=== PATIENT | female | born 1975 | race Caucasian/White ===

== ENCOUNTER → 2017-11-04 | Outpatient (CLI) | payer MEDICARE | LOC: MAMMO 13:13 | PROVIDERS: ATTEND Specialist | DX: Z12.31 Encounter for screening mammogram for malignant neoplasm of breast (principal) | CPT/HCPCS: 77067 ==

== ENCOUNTER 2019-10-20 18:16 | Inpatient (IN) | payer OTHER ==
[~2019-10-20] VITALS: Ht 167.6 cm; Wt 79.4 kg
[2019-10-20] MEDS ORDERED: ONDANSETRON HCL INJ 2MG/ML 2ML 2 MG/ML VIAL IV STA (18:22)
[2019-10-20] MEDS ORDERED: SODIUM CHLORIDE 0.9% 1000ML 1,000 ML IV STA (18:22)
[2019-10-20] MEDS ORDERED: MORPHINE SULFATE INJ 4 MG/ML INJ 1ML IV STA (18:22)
[2019-10-20] MEDS ORDERED: PANTOPRAZOLE 40 MG 10ML VIAL IV STA (18:22)
[2019-10-20] MEDS ORDERED: LIDOCAINE VISC 2% SOLN 15 ML UDC PO ONE (18:30)
[2019-10-20] MEDS ORDERED: MAGNESIUM/ALUMINUM/SIMETHICONE 30 ML UDC PO ONE (18:30)
[2019-10-20] MEDS ORDERED: ASPIRIN 81 MG CHEW TAB PO ONE (18:30)
[2019-10-20 18:34] LABS: BASOPHILS % 0.2 % (0.0-1.0); EOSINOPHILS % 0.3 % (0.0-6.0); HEMATOCRIT 40.3 % (34.2-44.1); HEMOGLOBIN 14.5 g/dL (12.0-16.0); LYMPHOCYTES # (AUTO) 1.5 (1.0-3.2); LYMPHOCYTES % 10.8 % (18.0-39.1); MEAN CORPUSCULAR HEMOGLOBIN 31.2 pg (28-32); MEAN CORPUSCULAR VOLUME 86.7 fL (81-99); MONOCYTES # (AUTO) 0.9 (0.2-0.8); MONOCYTES % 6.4 % (4.4-11.3); NEUTROPHILS # (AUTO) 11.5 (2.1-6.9); NEUTROPHILS % 81.9 % (38.7-80.0); PLATELET COUNT 325 x10e3/uL (140-360); RED BLOOD COUNT 4.65 x10e6/uL (3.6-5.1); RED CELL DISTRIBUTION WIDTH 12.7 % (11.7-14.4)
[2019-10-20 18:43] LABS: INR 0.91; PROTHROMBIN TIME 12.8 seconds (11.9-14.5)
[2019-10-20 18:44] LABS: PARTIAL THROMBOPLASTIN TIME 24.5 seconds (23.8-35.5)
[2019-10-20 18:52] LABS: ALANINE AMINOTRANSFERASE 1042 IU/L (0-55); ALBUMIN 3.7 g/dL (3.5-5.0); ALBUMIN/GLOBULIN RATIO 1.2 (0.8-2.0); ALKALINE PHOSPHATASE 78 IU/L (40-150); AMYLASE 3545 U/L (25-125); ANION GAP 12.7 mmol/L (8-16); BLOOD UREA NITROGEN 11 mg/dL (7-26); BUN/CREATININE RATIO 16 (6-25); CALCIUM 8.7 mg/dL (8.4-10.2); CARBON DIOXIDE 22 mmol/L (22-29); CHLORIDE 107 mmol/L (98-107); CREATINE KINASE 22 IU/L (29-168); CREATININE, SERUM 0.68 mg/dL (0.57-1.11); EST GLOMERULAR FILTRATION RATE > 60 ML/MIN (60-); GLUCOSE 151 mg/dL (74-118); POTASSIUM 3.7 mmol/L (3.5-5.1); SODIUM 138 mmol/L (136-145)
[2019-10-20] MEDS: BELLADONNA ALK/PHENOBARBITAL 5 ML UDC PO SCH (18:55)
[2019-10-20] MEDS ORDERED: PIPER-TAZ 3.375 GM 50 ML IV STA (19:12)
[2019-10-20 19:41] LABS: LIPASE 14122 U/L (8-78)
[2019-10-20] MEDS ORDERED: SODIUM CHLORIDE 0.9% 1000ML 1,000 ML IV ONE (20:00)
--- NOTE | 2019-10-20 20:17 | Diagnostic Imaging Report ---
EXAMINATION: CHEST SINGLE (PORTABLE) INDICATION: ^ERMD ORDER ^[id number] ^[birth year]26 ^Y. COMPARISON: FINDINGS: AP view TUBES and LINES: None. LUNGS/PLEURA: Lungs are well inflated. There is no evidence of pneumonia or pulmonary edema.. There is no pleural effusion or pneumothorax. HEART AND MEDIASTINUM: The cardiomediastinal silhouette is unremarkable. BONES AND SOFT TISSUES: No acute osseous lesion. Soft tissues are unremarkable. UPPER ABDOMEN: No free air under the diaphragm. IMPRESSION: No acute thoracic abnormality. Signed by: Simon Cohen MD on 10/20/2019 8:14 PM
--- NOTE | 2019-10-20 20:41 | Diagnostic Imaging Report ---
EXAM: CT Abdomen and Pelvis WITH contrast INDICATION: ruq pain COMPARISON: None. TECHNIQUE: Abdomen and pelvis were scanned utilizing a multidetector helical scanner from the lung base to the pubic symphysis after administration of IV contrast. Coronal and sagittal reformations were obtained. Dose modulation, iterative reconstruction, and/or weight based adjustment of the mA/kV was utilized to reduce the radiation dose to as low as reasonably achievable. Routine protocol was performed. Scan was performed when during portal venous phase. IV CONTRAST: 150 mL of Omnipaque 300 ORAL CONTRAST: Water COMPLICATIONS: None RADIATION DOSE: Total DLP: 495.8 mGy-cm Estimated effective dose: (DLP x 0.015 x size factor) mSv CTDIvol has been reviewed. It is below the limits set by the Radiation Protocol Committee (RPC). FINDINGS: LINES and TUBES: None. LOWER THORAX: There is bibasilar atelectasis. HEPATOBILIARY/GALLBLADDER: No focal hepatic lesions. There are stones in the gallbladder. No wall thickening. There is extrahepatic biliary ductal dilatation and minimal intrahepatic ductal dilatation. No definite choledocholithiasis. SPLEEN: No splenomegaly. PANCREAS: There is mild edema of the pancreas and infiltration adjacent to the pancreas pancreatitis. There is minimal free fluid adjacent pancreas with no definite pseudocyst formation. The pancreas parenchymal demonstrates adequate enhancement excluding necrosis. ADRENALS: No adrenal nodules KIDNEYS/URETERS: Kidneys enhance symmetrically. No hydronephrosis. Right renal cysts. No stones. GI TRACT: No abnormal distention, wall thickening, or evidence of bowel obstruction. Appendix is normal. PELVIC ORGANS/BLADDER: The bladder is unremarkable. There is a left adnexal cystic structure which could be physiologic for age. LYMPH NODES: No lymphadenopathy. VESSELS: Unremarkable. PERITONEUM / RETROPERITONEUM: No free air . BONES: Unremarkable. SOFT TISSUES: There is a fat containing para-umbilical hernia. IMPRESSION: Findings suggestive of mild pancreatitis. Cholelithiasis with no evidence of cholecystitis. Mild dilatation of common bile duct with no definite choledocholithiasis. Signed by: Simon Cohen MD on 10/20/2019 8:38 PM
[2019-10-20] MEDS: SODIUM CHLORIDE 0.9% 1000ML 1,000 ML IV SCH (21:15)
[2019-10-20] MEDS ORDERED: LEVETIRACETAM500 MG PO (21:16)
--- OUTSIDE RECORDS SUMMARY | 2019-10-20 21:17 | XMS REPORT ---
Author Author [facility] Address Unknown Phone Unavailable Care Team Providers Care Insurance Verification Rep Name Role Phone MIGUELINA Kieran DURGA Unavailable Unavailable CHIP COX Unavailable Unavailable Problems This patient has no known problems. Allergies, Adverse Reactions, Alerts This patient has no known allergies or adverse reactions. Medications This patient has no known medications. Results Test Description Test Time Test Comments Text Results Atomic Results Result Comments CT ABDOMEN/PELVIS W 2019-10-20 20:27:00 [facility] [address] [place] [address] Patient Name: LUCA TOLBERT MR #: [id number] : 1975 Age/Sex: 44/F Req #: [id number] Adm Physician: Ordered by: LUISA BERNARD [employer]IT[employer] MANAGER Report #: [id number] Location: ER Room/Bed: Procedure: [id number] CT/CT ABDOMEN/PELVIS W Exam Date: 10/20/19 Exam Time: 1929 REPORT STATUS: Signed EXAM: CT Abdomen and Pelvis WITH contrast INDICATIO N: ruq pain COMPARISON: None. TECHNIQUE: Abdomen and pelvis were scanned utilizing a multidetector helical scanner from the lung base to the pubic symphysis after administration of IV contrast. Coronal and sagittal reformations were obtained. Dose modulation, iterative reconstruction, and/or weight based adjustment of the mA/kV was utilized to reduce the radiation dose to as low as reasonably achievable. Routine protocol was performed. Scan was performed when during portal venous phase. IV CONTRAST: 150 mL of Omnipaque 300 ORAL CONTRAST: Water COMPLICATIONS: None RADIATION DOSE: Total DLP: 495.8 mGy-cm Estimated effective dose: (DLP x 0.015 x size factor) mSv CTDIvol has been reviewed. It is below the limits set by the Radiation Protocol Committee (RPC). FINDINGS: LINES and TUBES: None. LOWER THORAX: There is bibasilar atelectasis. HEPATOBILIARY/GALLBLADDER: No focal hepatic lesions. There are stones in the gallbladder. No wall thickening. There is extrahepatic biliary ductal dilatation and minimal intrahepatic ductal dilatation. No definite choledocholithiasis. SPLEEN: No splenomegaly. PANCREAS: There is mild edema of the pancreas and infiltration adjacent to the pancreas pancreatitis. There is minimal free fluid adjacent pancreas with no definite pseudocyst formation. The pancreas parenchymal demonstrates adequate enhancement excluding necrosis. ADRENALS: No adrenal nodules KIDNEYS/URETERS: Kidneys enhance symmetrically. No hydronephrosis. Right renal cysts. No stones. GI TRACT: No abnormal distention, wall thickening, or evidence of bowel obstruction. Appendix is normal. PELVIC ORGANS/BLADDER: The bladder is unremarkable. There is a left adnexal cystic structure which could be physiologic for age. LYMPH NODES: No lymphadenopathy. VESSELS: Unremarkable. PERITONEUM / RETROPERITONEUM: No free air . BONES: Unremarkable. SOFT TISSUES: There is a fat containing para-umbilical hernia. IMPRESSION: Findings suggestive of mild pancreatitis. Cholelithiasis with no evidence of cholecystitis. Mild dilatation of common bile duct with no definite choledocholithiasis. Signed by: Simon Garcia MD on 10/20/2019 8:38 PM Dictated By: SIMON GARCIA MD 37 Transcribed By: STACEY on 10/20/192037 COPY TO: LUISA BERNARD NP CHEST SINGLE (PORTABLE) 2019-10-20 20:13:00 [place] [address] Patient Name: LUCA TOLBERT MR #: [id number] : 1975 Age/Sex: 44/F Req #: [id number] Adm Physician: Ordered by: LUISA BERNARD [employer] T[employer]ITORY MANAGER Report #: [id number] Location: ER Room/Bed: Procedure: [id number] DX/CHEST SINGLE (PORTABLE) Exam Date: 10/20/19 Exam Time: 1926 REPORT STATUS: Signed EXAMINATION: CHEST SINGLE (PORTABLE) BALDEV CATION: ERMD ORDER [id number] 1928 Y. COMPARISON: FINDINGS: AP view TUBES and LINES: None. LUNGS/PLEURA: Lungs are well inflated. There is no evidence of pneumonia or pulmonary edema.. There is no pleural effusion or pneumothorax. HEART AND MEDIASTINUM: The cardiomediastinal silhouette is unremarkable. BONES AND SOFT TISSUES: No acute osseous lesion. Soft tissues are unremarkable. UPPER ABDOMEN: No free air under the diaphragm. IMPRESSION: No acute thoracic abnormality. Signed by: Simon Garcia MD on 10/20/2019 8:14 PM Dictated By: SIMON GARCIA MD 13 Transcribed By: STACEY on 10/20/192013 COPY TO: LUISA BERNARD [employer] TERRITORY MANAGER MAMMOGRAPHY DIGITAL [place] [address] Patient Name: LUCA TOLBERT MR #: [id number] : 1975 Age/Sex: 42/F Req #: [id number] Adm Physician: Ordered by: CHIP COX MD Report #: [id number] Location: MAMMO Room/Bed: Procedure: [id number] MG/MAMMOGRAPHY DIGITAL SCR BILAT Exam Date: 11/04/17 Exam Time: 1333 REPORT STATUS: Signed #[id number] - [id number] #BILATERAL DIGITAL SCREENING MAMMOGRAM WITH CAD: 11/04/2017 CLINICAL: Routine screening. No prior exams were available for comparison. Current study contains 4 films. The tissue of both breasts is extremely dense, which lowers the sensitivity of mammography. Current study was also evaluated with a Computer Aided Detection (CAD) system. There are benign calcifications in both breasts. There is a mole marker on both breasts. No significant masses, calcifications, or other findings are seen in either breast. IMPRESSION: BENIGN There is no mammographic evidence of malignancy. A 1 year screening mammogram is recommended. The patient will be notified by letter of the results. Cali heart/royce:11/18/2017 08:54:57 Pharmaceutical Botanist: Gayathri PINA(R)(M), [facility] letter sent: Normal Exam Mammogram BI-RADS: 2 Benign Dictated By: CALI GARCIA DO Transcribed By: ROYCE on 11/18/17853 COPY TO: CHIP COX MD
--- OUTSIDE RECORDS SUMMARY | 2019-10-20 21:17 | XMS REPORT ---
Author Author Admin, [place] Organization [facility] Address [address] [place] [address] Phone Allergies, Adverse Reactions, Alerts Allergy Name Reaction Description Start Date Severity Status Provider No Known Allergies Stephenie Ospina MA Conditions or Problems Problem Name Problem Code Onset Date Status Entry Date Provider Comment Standard Description Annotate Contact with or exposure to unspecified communicable disease V01.9 Active Lucy FABIAN Contact with or exposure to unspecified communicable disease History of brain tumor V10.85 Active Lucy FABIAN Personal history of malignant neoplasm of brain Seizure disorder 780.39 Active Lucy FABIAN Other convulsions Medication List Medication Instructions Start Date Stop Date Generic Name NDC Status Provider Patient Instruction CELEXA 20 MG ORAL TABLET 1 by mouth every day CITALOPRAM HYDROBROMIDE 09664344021 Active Lucy FABIAN Active LEVETIRACETAM 1000 MG ORAL TABLET TAKE 1 TABLET BY MOUTH TWICE A DAY LEVETIRACETAM 59849034186 Active Lucy FABIAN Active Vital Signs Date Name Value Unit Range Description blood pressure, diastolic 71 mm[Hg] BP shepherd blood pressure, systolic 101 mm[Hg] BP sys height E&M 66 [in_us] Bdy height pulse rate E&M 72 /min Heart rate temperature E&M 97.9 [degF] Body temperature weight E&M 192.25 [lb_av] Weight Measured Encounters Date Encounter Provider Code Facility 13:08:22 CDT New Patient Exp Problem - 74776 Lucy FABIAN CPT-79808 [facility] Adult Medicine
--- OUTSIDE RECORDS SUMMARY | 2019-10-20 21:17 | XMS REPORT ---
Author Author Admin, [place] Organization Unknown Address Unknown Phone Unavailable PROBLEMS Condition Status Date Provider Notes Acute maxillary sinusitis active Sana Monge History of brain tumor active Lucy Goff Seizure disorder active Lucy Goff Contact with or exposure to unspecified communicable disease active Lucy Goff ENCOUNTERS Date Type Provider Location Encounter Diagnosis - Ambulatory Encounter Sana L Monge Sana L Monge [facility] UNK - Ambulatory Encounter Sana L Monge Sana L Monge Silvia Alves [facility] Adult Medicine Acute maxillary sinusitis - Ambulatory Encounter Lucy Christopher [facility] Adult Medicine UNK - Ambulatory Encounter Armida Chavez [facility] Adult Medicine UNK - Ambulatory Encounter Lucy Goff [facility] Adult Medicine K - Ambulatory Encounter Lucy Ospina [facility] Adult Medicine Contact with or exposure to unspecified communicable diseaseSeizure disorderHistory of brain tumor VITAL SIGNS No Information Available Allergies No Known Allergy Information REASON FOR REFERRAL No Information Available RESULTS No Information Available HISTORY OF IMMUNIZATIONS No Information Available HISTORY OF MEDICATION USE Medication Instructions Dates Provider Comments AMOXICILLIN-POT CLAVULANATE 875-125 MG ORAL TABLET take 1 tablet twice daily for 1 week Sana Arroyo Monge CELEXA 20 MG ORAL TABLET 1 by mouth every day Lucy Goff LEVETIRACETAM 1000 MG ORAL TABLET TAKE 1 TABLET BY MOUTH TWICE A DAY Stephenie Brandrod #60, 30 days supply, Prescribed by CHIP COX, Rodo 10/28/2018 SOCIAL HISTORY Date Observation Value Provider social history reviewed E&M reviewed today Sana Monge " drug use, illicit Never Silvia Alves " alcohol use Currently Silvia Alves " sexual orientation Heterosexual Silvia Alves " is there any chance that you could be ? No Silvia Alves " passive cigarette smoke exposure No Silvia Alves " smoking status never smoker Silvia Long drug use, illicit Never Stephenie Anai " alcohol use, frequency holidays/special occasions only Stephenie [place] " alcohol use Currently Stephenie [place] " sex at Female Stephenie Anai " sexual orientation Heterosexual Stephenie [place] " passive cigarette smoke exposure No Stephenie [place] " smoking status never smoker Stephenie [place] " is there any chance that you could be ? No Stephenie Anai FUNCTIONAL STATUS No Information Available MENTAL STATUS Date Observation Value Provider Generalized Anxiety Disorder Questionnaire - Question 2 0 Silvia Alves " Generalized Anxiety Disorder Questionnaire - Question 1 0 Silvia Long Generalized Anxiety Disorder Questionnaire - Question 2 0 Stepheniebrenda Ospina " Generalized Anxiety Disorder Questionnaire - Question 1 0 Stephenie Anai MEDICAL EQUIPMENT No Information Available FAMILY HISTORY No Information Available INSURANCE PROVIDERS No Information Available ADVANCE DIRECTIVES No Information Available TREATMENT PLAN Date Name Hep B Surface Ab (Hep B Titer) Varicella Zoster Abs, IgG/IgM Measles/Mumps/Rubella Immunity (IgG) ([facility]) Est Patient Exp Problem - 62404 New Patient Exp Problem - 10055 HISTORY OF PROCEDURES No Information Available GOALS No Information Available HEALTH CONCERNS No Information Available
--- OUTSIDE RECORDS SUMMARY | 2019-10-20 21:17 | XMS REPORT ---
Author Author Admin, [place] Organization Unknown Address Unknown Phone Unavailable PROBLEMS Condition Status Date Provider Notes Acute maxillary sinusitis active Sana Monge History of brain tumor active Lucy Goff Seizure disorder active Lucy Goff Contact with or exposure to unspecified communicable disease active Lucy Goff ENCOUNTERS Date Type Provider Location Encounter Diagnosis - Ambulatory Encounter Sana L Monge Sana L Monge [facility] Adult Medicine UNK - Ambulatory Encounter Sana L Mogne Sana L Monge Silvia Alves [facility] [place] Adult Medicine Acute maxillary sinusitis - Ambulatory Encounter Lucy Christopher [facility] [place] Adult Medicine UNK - Ambulatory Encounter Armida Chavez [facility] [place] Adult Medicine UNK - Ambulatory Encounter Lucy Goff [facility] Adult Medicine K - Ambulatory Encounter Lucy Ospina [facility] Adult Medicine Contact with or exposure to [...] alcohol use, frequency holidays/special occasions only Stephenie [place] " alcohol use Currently Stephenie [place] " sex at Female Stephenie Anai " sexual orientation Heterosexual Stephenie Post " passive cigarette smoke exposure No Stephenie Post " smoking status never smoker Stephenie Post " is there any chance that you [...] (IgG) ([facility]) Est Patient Exp Problem - 62280 New Patient Exp Problem - 93361 HISTORY OF PROCEDURES No Information Available GOALS No Information Available HEALTH CONCERNS No Information Available
[2019-10-20] MEDS ORDERED: PHENTERMINE H37.5 M1 PO (21:21)
[2019-10-20] MEDS ORDERED: DESVENLAFAXINE50 MG PO (21:21)
[2019-10-20] MEDS ORDERED: LEVETIRACETAM 500 MG TAB PO SCH (21:30)
[2019-10-20] MEDS ORDERED: LEVETIRACETAM 500 MG TAB ONE ×2 (21:31→21:34)
--- NOTE | 2019-10-20 21:33 | Diagnostic Imaging Report ---
HISTORY: Pain, acute pancreatitis ^ABD PAIN ^Y TECHNIQUE: Selected images from limited abdominal ultrasound provided for INTERPRETATION: COMPARISON: CT abdomen/pelvis 1940 hours. FINDINGS: Pancreas: Visualized structures are increased in echotexture suggestive of lipomatosis. No mass or ductal dilatation. Liver: Measures 15.6 cm in sagittal plane. The echotexture is increased. No mass in the visualized portions. Portal Vein: Measures 0.9 cm. Proper directional flow on spectral Doppler interrogation. Intrahepatic bile ducts: No dilatation. Gallbladder: Present and filled with calcified gallstones. The gallbladder wall measures 2 mm. No pericholecystic fluid. CBD: 0.5 cm. Right Kidney: 10.7 cm in greatest length. The echotexture is normal. There is a unilocular cyst in the interpolar region measuring 14 x 17 x 18 mm. There is no collecting system dilatation or evidence of obstruction. No renal calculi evident. No adjacent free fluid or fluid collections. Visualized IVC and aorta are normal. There is no free fluid. IMPRESSION: 1. Cholelithiasis. No sonographic evidence of acute cholecystitis. No bile duct dilatation. 2. Steatosis. 3. Cyst in the right kidney as described above. Signed by: Dr. Celio Serrano MD on 10/20/2019 9:30 PM
[2019-10-20] MEDS ORDERED: LEVETIRACETAM 500 MG TAB PO ONE (21:45)
[2019-10-20] MEDS: PIPER-TAZ 3.375 GM / NS 50ML IV SCH (22:00)
[2019-10-20 22:53] VITALS: BP 118/69
--- NOTE | 2019-10-20 23:29 | NUR ---
SPOKE TO DR. aTqueria ARAIZA AT THIS TIME. SAID OK TO GIVE PO MEDS WITH SIPS OF WATER
[2019-10-20] MEDS: ONDANSETRON HCL INJ 2MG/ML 2ML 2 MG/ML VIAL IV PRN (23:38)
[2019-10-20] MEDS: HYDROMORPHONE 1MG/1ML INJ IV PRN (23:38)
[2019-10-21] VITALS (8 sets, daily range): BP systolic 98–110; BP diastolic 63–80
[2019-10-21] MEDS: SODIUM CHLORIDE 0.9% 1000ML 1,000 ML IV SCH ×5 (03:35→22:08)
[2019-10-21] MEDS: HYDROMORPHONE 1MG/1ML INJ IV PRN ×5 (03:40→21:05)
[2019-10-21] MEDS: PIPER-TAZ 3.375 GM / NS 50ML IV SCH ×3 (05:05→22:00)
[2019-10-21 05:07] LABS: BASOPHILS % 0.1 % (0.0-1.0); EOSINOPHILS % 0.3 % (0.0-6.0); HEMATOCRIT 35.5 % (34.2-44.1); HEMOGLOBIN 12.3 g/dL (12.0-16.0); LYMPHOCYTES # (AUTO) 1.1 (1.0-3.2); LYMPHOCYTES % 13.7 % (18.0-39.1); MEAN CORPUSCULAR HEMOGLOBIN 31.1 pg (28-32); MEAN CORPUSCULAR HGB CONC 34.6 g/dL (31-35); MEAN CORPUSCULAR VOLUME 89.6 fL (81-99); MONOCYTES # (AUTO) 0.6 (0.2-0.8); MONOCYTES % 7.1 % (4.4-11.3); NEUTROPHILS # (AUTO) 6.2 (2.1-6.9); NEUTROPHILS % 78.5 % (38.7-80.0); PLATELET COUNT 261 x10e3/uL (140-360); RED BLOOD COUNT 3.96 x10e6/uL (3.6-5.1); RED CELL DISTRIBUTION WIDTH 12.9 % (11.7-14.4)
[2019-10-21 05:44] LABS: ALANINE AMINOTRANSFERASE 859 IU/L (0-55); ALBUMIN 2.9 g/dL (3.5-5.0); ALBUMIN/GLOBULIN RATIO 1.2 (0.8-2.0); ALKALINE PHOSPHATASE 70 IU/L (40-150); AMYLASE 1270 U/L (25-125); BLOOD UREA NITROGEN 7 mg/dL (7-26); BUN/CREATININE RATIO 12 (6-25); CALCIUM 7.9 mg/dL (8.4-10.2); CARBON DIOXIDE 25 mmol/L (22-29); CHLORIDE 112 mmol/L (98-107); EST GLOMERULAR FILTRATION RATE > 60 ML/MIN (60-); GLUCOSE 102 mg/dL (74-118); SODIUM 141 mmol/L (136-145)
[2019-10-21 06:12] LABS: LIPASE 1871 U/L (8-78)
[2019-10-21] MEDS ORDERED: SODIUM CHLORIDE 0.9% 50ML 50 ML ONE (07:03)
[2019-10-21] MEDS ORDERED: IOPAMIDOL 370 MG/ML 200 ML INFUS..BTL INJ ONE (07:03)
--- NOTE | 2019-10-21 07:05 | NUR ---
RCD PT AT BED PT IS ALERT AND ORIENTED PT RESTING ON BED NO SIGNS OF ANY DISTRESS NOTED IV PATENT PT NPO BED LOW AND LOCKED CALL LIGHT IN REACH
--- NOTE | 2019-10-21 07:15 | NUR ---
PAGED DR DAMIAN TO NOTIFY THE CONSULTATION
[2019-10-21] MEDS: BELLADONNA ALK/PHENOBARBITAL 5 ML UDC PO SCH ×3 (08:05→22:08)
[2019-10-21] MEDS: ONDANSETRON HCL INJ 2MG/ML 2ML 2 MG/ML VIAL IV PRN (08:05)
[2019-10-21] MEDS: FAMOTIDINE 20 MG/2 ML VIAL IV SCH ×2 (08:46→16:56)
[2019-10-21] MEDS ORDERED: LEVETIRACETAM 500 MG TAB PO SCH (09:00)
--- NOTE | 2019-10-21 09:20 | History and Physical ---
PRIMARY CARE PHYSICIAN: Dilan Adams MD CHIEF COMPLAINT: Severe abdominal pain associated with gallstone and pancreatitis. HISTORY OF PRESENT ILLNESS: The patient is a 44-year-old female with history of seizure due to multiple craniotomy, brain cancer resection, on Keppra, came into the hospital with increase in severe abdominal pain. In the emergency room, the patient had workup done show dilated common bile duct along with that she also has chololithiasis. The patient was having nausea and vomiting. Severity is quite significant, which brought the patient to the emergency room and now admitted for further evaluation and treatment. The patient is otherwise stable. PAST MEDICAL HISTORY: 1. Malignant brain cancer, status post resection x3. 2. Seizure, on antiepileptic medication Keppra. 3. Major depression. SOCIAL HISTORY: The patient does not smoke or use alcohol. No recreational drugs. ALLERGIES: NO KNOWN ALLERGIES. HOME MEDICATION: Keppra 1000 mg twice a day. REVIEW OF SYSTEMS: As mentioned above. Persistent abdominal pain. PHYSICAL EXAMINATION: VITAL SIGNS: Temperature is 98, blood pressure 98/66, pulse rate 71, and respirations 18. GENERAL: The patient is in pain, but not in any acute distress. HEENT: History of previous craniotomy. No acute cranial problem. NECK: Grossly supple. PULMONARY: Clear. CARDIOVASCULAR: Regular rate and rhythm. ABDOMEN: Tenderness with some guarding. EXTREMITIES: No cyanosis or edema. NEURO: No gross focal deficit. LABORATORY DATA: Sodium 141, potassium 4, chloride 112, bicarb 25, BUN , creatinine 0.6, glucose 102. WBC is 8, hemoglobin 12, hematocrit 36, and platelets 261. PT is 12.8, PTT 24.5, and INR 0.9. Liver enzymes; AST 1259, ALT 1042, lipase 14,122, amylase 3545. Total bilirubin is 4.0. IMAGING DATA: Including pancreatitis. Cholelithiasis. Dilated common bile duct. IMPRESSION: 1. Acute pancreatitis secondary to gallstones, most likely associated with common bile duct dilatation. 2. Cholelithiasis and choledocholithiasis. 3. History of seizure from previous craniotomy. PLAN: Change the Keppra from home medication to IV. Continue with Zosyn 3.375 g IV q.8. MRCP. Consultation with Dr. Thanh Humphries and Dr. Sam Knowles. The patient will continue with IV fluids aggressively. Repeat lab work. Pain control. Pepcid 20 mg twice a day IV. Rylie chen.r.n. Pain control with Dilaudid. MD ABENA Edwards/FRANCISCO /[id number] cc: Dilan Adams MD
--- NOTE | 2019-10-21 10:00 | NUR ---
AGAIN PAGED DR DAMIAN TO NOTIFY THE CONSULTATION
--- NOTE | 2019-10-21 10:30 | NUR ---
PAGED AND TALKED DR DAMIAN HE SAID HE COMING TO SEE THE PT WITH IN AN HOUR
[2019-10-21 10:48] LABS: COLOR,URINE YELLOW (YELLOW)
[2019-10-21 10:49] LABS: BILIRUBIN,URINE SMALL (NEGATIVE); CLARITY,URINE CLEAR (CLEAR); KETONES,URINE NEGATIVE (NEGATIVE); LEUKOCYTE ESTERASE ,URINE NEGATIVE (NEGATIVE); NITRITE,URINE NEGATIVE (NEGATIVE); PROTEIN,URINE DIPSTICK NEGATIVE (NEGATIVE); URINE UROBILINOGEN 0.2 mg/dL (0.2 - 1)
[2019-10-21 10:58] LABS: BACTERIA,URINE FEW /HPF; EPITHELIAL CELLS,URINE FEW /LPF; RBC,URINE 0-5 /HPF (0-5); WBC,URINE (MAN) 0-5 /HPF (0-5)
--- NOTE | 2019-10-21 11:24 | Diagnostic Imaging Report ---
EXAM: MRI MRCP WO DATE: 10/21/2019 8:00 AM INDICATION: Evaluate for choledocholithiasis. COMPARISON: CT abdomen and pelvis dated 10/20/2019. TECHNIQUE: MRCP protocol performed. Sequences obtained include axial T2 FRFSE FS, coronal and axial T2 SSFSE, SSFSE coronal spins. FINDINGS: LOWER THORAX: There is bibasilar atelectasis. HEPATOBILIARY/GALLBLADDER: The liver is normal in size and signal intensity. No focal hepatic lesions. Again seen are multiple stones in the gallbladder. No wall thickening.There is extrahepatic biliary ductal dilatation and minimal intrahepatic ductal dilatation. There is no choledocholithiasis. SPLEEN: No splenomegaly. PANCREAS: Again seen is is mild edema of the pancreas and infiltration adjacent to the pancreas suggestive of mild degree of pancreatitis. There is minimal free fluid adjacent pancreas with no definite pseudocyst formation. . ADRENALS: No adrenal nodules KIDNEYS/URETERS: Kidneys enhance symmetrically. No hydronephrosis. Right renal upper pole simple cortical cyst measures 1.2 cm. No stones. GI TRACT: No abnormal distention, wall thickening, or evidence of bowel obstruction LYMPH NODES: No lymphadenopathy. VESSELS: Unremarkable. BONES: Unremarkable. SOFT TISSUES: There is a fat containing para-umbilical hernia. IMPRESSION: Mild pancreatitis. Cholelithiasis with no choledocholithiasis or cholecystitis. Signed by: Simon Cohen MD on 10/21/2019 11:20 AM
--- NOTE | 2019-10-21 11:55 | NUR ---
DR DAMIAN CAME TO SEE THE PT AND TALKED HER
[2019-10-21] MEDS ORDERED: ACETAMINOPHEN 325 MG TAB PO PRN (12:30)
--- NOTE | 2019-10-21 12:35 | Consultation ---
DATE OF CONSULTATION: 10/21/2019 CHIEF COMPLAINT: Abdominal pain. HISTORY OF PRESENT ILLNESS: The patient is a 44-year-old female with one-day history of pain in epigastric region with nausea and vomiting. No prior similar episodes. No fevers or diarrhea. PAST MEDICAL HISTORY: Positive for brain cancer, seizure disorder, and major depression. PAST SURGICAL HISTORY: Positive for craniotomy. ALLERGIES: SHE HAS NO DRUG ALLERGIES. SOCIAL HISTORY: Denies smoking or alcohol abuse. REVIEW OF SYSTEMS: No chest pain or shortness of breath. PHYSICAL EXAMINATION: VITAL SIGNS: Stable. Afebrile. GENERAL: She is awake, alert, in mild discomfort. HEENT: Sclerae are nonicteric. NECK: Supple. LUNGS: Clear. HEART: Regular rate and rhythm. ABDOMEN: Soft with some guarding tenderness epigastrium. No rebound. EXTREMITIES: No cyanosis or edema. LABORATORY DATA: The patient's white cell count is 14 and hemoglobin of 14. Creatinine is 0.6. Liver function tests, elevated bilirubin of 4, alkaline phosphatase 78, and ALT 1042. Lipase 14,000. Amylase 3500. Ultrasound gallbladder showed gallstones. MRCP showed mild pancreatitis, but no bile duct stone. ASSESSMENT: Gallstone pancreatitis. PLAN: N.p.o. until pancreatitis resolves, then proceed with cholecystectomy. Sam Knowles MD DNL/MODL /[id number]
[2019-10-21] MEDS: LEVETIRACETAM 500MG/5ML VIAL 1,000 MG in SODIUM CHLORIDE 0.9% 100 ML 100 ML IV SCH (18:00)
--- NOTE | 2019-10-21 18:40 | NUR ---
PT RESTING ON BED BED SIDE REPORT GIVEN TO ONCOMING NURSE
--- NOTE | 2019-10-21 19:09 | NUR ---
PT RESTING ON BED BED SIDE REPORT GIVEN TO ONCOMING NURSE
[2019-10-22] VITALS (8 sets, daily range): BP systolic 100–114; BP diastolic 66–70
[2019-10-22] MEDS: HYDROMORPHONE 1MG/1ML INJ IV PRN ×6 (00:07→22:37)
[2019-10-22] MEDS: SODIUM CHLORIDE 0.9% 1000ML 1,000 ML IV SCH ×5 (03:37→23:35)
[2019-10-22] MEDS: PIPER-TAZ 3.375 GM / NS 50ML IV SCH ×3 (05:06→21:18)
[2019-10-22 05:20] LABS: BASOPHILS % 0.3 % (0.0-1.0); EOSINOPHILS % 0.3 % (0.0-6.0); HEMOGLOBIN 11.5 g/dL (12.0-16.0); LYMPHOCYTES # (AUTO) 1.1 (1.0-3.2); LYMPHOCYTES % 9.2 % (18.0-39.1); MEAN CORPUSCULAR HEMOGLOBIN 30.7 pg (28-32); MEAN CORPUSCULAR HGB CONC 33.8 g/dL (31-35); MEAN CORPUSCULAR VOLUME 90.7 fL (81-99); MONOCYTES % 8.2 % (4.4-11.3); NEUTROPHILS # (AUTO) 9.5 (2.1-6.9); NEUTROPHILS % 81.6 % (38.7-80.0); PLATELET COUNT 211 x10e3/uL (140-360); RED BLOOD COUNT 3.75 x10e6/uL (3.6-5.1); RED CELL DISTRIBUTION WIDTH 12.9 % (11.7-14.4)
[2019-10-22 05:54] LABS: ALANINE AMINOTRANSFERASE 476 IU/L (0-55); ALBUMIN 2.7 g/dL (3.5-5.0); ALBUMIN/GLOBULIN RATIO 1.1 (0.8-2.0); ALKALINE PHOSPHATASE 69 IU/L (40-150); ANION GAP 9.4 mmol/L (8-16); BLOOD UREA NITROGEN < 5 mg/dL (7-26); CARBON DIOXIDE 25 mmol/L (22-29); CHLORIDE 109 mmol/L (98-107); CHOL/HDL RATIO 4.8 (3.0-3.6); CHOLESTEROL 125 MD/DL (0-199); EST GLOMERULAR FILTRATION RATE > 60 ML/MIN (60-); GLUCOSE 86 mg/dL (74-118); HDL CHOLESTEROL 26 MG/DL (40-60); LDL CHOLESTEROL 85 MG/DL (60-130); LIPASE 533 U/L (8-78); POTASSIUM 4.4 mmol/L (3.5-5.1); SODIUM 139 mmol/L (136-145); TRIGLYCERIDES 69 MG/DL (0-149)
[2019-10-22 05:55] LABS: BUN/CREATININE RATIO 8 (6-25)
[2019-10-22 06:00] LABS: THYROID STIMULATING HORMONE 0.937 uIU/mL (0.350-4.940)
[2019-10-22] MEDS: LEVETIRACETAM 500MG/5ML VIAL 1,000 MG in SODIUM CHLORIDE 0.9% 100 ML 100 ML IV SCH ×2 (06:00→17:41)
--- NOTE | 2019-10-22 07:10 | NUR ---
RCD PT AT BED PT IS ALERT AND ORIENTED PT RESTING ON BED NO SIGNS OF ANY DISTRESS NOTED IV PATENT PT CAN HAVE SOME WATER TO DRINK BED LOW AND LOCKED CALL LIGHT IN REACH
--- NOTE | 2019-10-22 07:10 | NUR ---
DR DAMIAN ASKED ABOUT THE PATIENTS CONDITION AND LABS ,HE SAID HE IS NOT DOING THE SURGERY ON TODAY HE WAITING FOR THE LABS ON TOMORROW NOTIFIED THE FAMILY
[2019-10-22] MEDS: BELLADONNA ALK/PHENOBARBITAL 5 ML UDC PO SCH ×3 (09:00→21:15)
[2019-10-22] MEDS: FAMOTIDINE 20 MG/2 ML VIAL IV SCH ×2 (09:00→17:00)
--- NOTE | 2019-10-22 13:54 | NUR ---
PT LIVES INDEPENDENTLY AT HOME WITH HER SHE IS A EMPLOYED A EQUIPMENT ASSOCIATE EMERGENCY CONTACT: : ANURAG TOLBERT PCP: CHIP ANDRES DC PLAN: RETURN HOME WITH HER
--- NOTE | 2019-10-22 18:38 | NUR ---
PT RESTING ON BED BED SIDE REPORT GIVEN TO ONCOMING NURSE
[2019-10-23] VITALS (8 sets, daily range): BP systolic 99–115; BP diastolic 66–68
[2019-10-23] MEDS: HYDROMORPHONE 1MG/1ML INJ IV PRN ×3 (03:45→20:43)
[2019-10-23] MEDS: SODIUM CHLORIDE 0.9% 1000ML 1,000 ML IV SCH ×5 (04:52→23:00)
[2019-10-23] MEDS: PIPER-TAZ 3.375 GM / NS 50ML IV SCH ×3 (05:10→20:33)
[2019-10-23 05:56] LABS: BASOPHILS % 0.3 % (0.0-1.0); EOSINOPHILS # (AUTO) 0.1 (0.0-0.4); EOSINOPHILS % 1.1 % (0.0-6.0); HEMATOCRIT 31.5 % (34.2-44.1); LYMPHOCYTES % 8.8 % (18.0-39.1); MEAN CORPUSCULAR HEMOGLOBIN 31.4 pg (28-32); MEAN CORPUSCULAR HGB CONC 34.9 g/dL (31-35); MONOCYTES # (AUTO) 0.9 (0.2-0.8); NEUTROPHILS % 81.3 % (38.7-80.0); PLATELET COUNT 206 x10e3/uL (140-360); RED CELL DISTRIBUTION WIDTH 12.7 % (11.7-14.4)
[2019-10-23] MEDS: LEVETIRACETAM 500MG/5ML VIAL 1,000 MG in SODIUM CHLORIDE 0.9% 100 ML 100 ML IV SCH ×2 (06:00→18:18)
[2019-10-23 06:17] LABS: ALANINE AMINOTRANSFERASE 276 IU/L (0-55); ALBUMIN 2.4 g/dL (3.5-5.0); ALBUMIN/GLOBULIN RATIO 0.9 (0.8-2.0); ALKALINE PHOSPHATASE 59 IU/L (40-150); ANION GAP 10.9 mmol/L (8-16); BLOOD UREA NITROGEN < 5 mg/dL (7-26); CARBON DIOXIDE 22 mmol/L (22-29); CHLORIDE 111 mmol/L (98-107); CREATININE, SERUM 0.56 mg/dL (0.57-1.11); EST GLOMERULAR FILTRATION RATE > 60 ML/MIN (60-); GLUCOSE 74 mg/dL (74-118); LIPASE 65 U/L (8-78); POTASSIUM 3.9 mmol/L (3.5-5.1); SODIUM 140 mmol/L (136-145)
[2019-10-23 06:40] LABS: BUN/CREATININE RATIO 9 (6-25)
--- NOTE | 2019-10-23 08:00 | NUR ---
Spoke with Dr. Knowles and reported lab results from this morning. Dr. Knowles states he will do lap stacey this morning. Received orders to have informed consent signed.
[2019-10-23] MEDS: BELLADONNA ALK/PHENOBARBITAL 5 ML UDC PO SCH ×3 (08:16→20:33)
[2019-10-23] MEDS: FAMOTIDINE 20 MG/2 ML VIAL IV SCH ×2 (08:16→18:19)
--- NOTE | 2019-10-23 09:30 | NUR ---
PT ASSESSED IN BED. AWAKE AND ALERT. NO COMPLAINTS OF PAIN. ABDOMEN SOFT TO PALPATION. NO NAUSEA. CONSENT FOR PROCEDURE OBTAINED. SEE CHART FOR DETAILS.
[2019-10-23] MEDS ORDERED: BUPIVACAINE 0.25% 30ML SDV INJ ONE (12:44)
[2019-10-23] MEDS ORDERED: LIDOCAINE 1% W/EPINEPHRINE 20 ML VIAL ONE (12:44)
--- NOTE | 2019-10-23 15:12 | NUR ---
Patient returned from PACU. Report received. Assisted to ambulate to bed. Tolerated well. No s/s of distress noted. Dressings to trochar sites to abdomen x 4 c/d/i/ Abdomen soft to palpation. No mccormack. See chart for details.
[2019-10-23] MEDS ORDERED: FENTANYL CITRATE/PF 100MCG/2 ML INJ ONE (15:59)
[2019-10-23] MEDS ORDERED: MIDAZOLAM HCL 2 MG/2 ML VIAL ONE (15:59)
--- NOTE | 2019-10-23 16:48 | Operative Report ---
DATE OF PROCEDURE: 10/23/2019 SURGEON: Sam Knowles MD PREOPERATIVE DIAGNOSIS: Gallstone pancreatitis. POSTOPERATIVE DIAGNOSIS: Gallstone pancreatitis. PROCEDURE: Laparoscopic cholecystectomy. ANESTHESIA: General. INDICATIONS: A 44-year-old female with history of abdominal pain and elevated lipase with gallstones seen. MRCP showed no bile duct stone. The patient consented for laparoscopic cholecystectomy after pancreatitis has improved. PROCEDURE FINDINGS: Chronic cholecystitis and cholelithiasis. DESCRIPTION OF PROCEDURE: The patient was brought to the OR and intubated. The abdomen was prepped and draped in sterile fashion. Infraumbilical incision was made and a 10 mm port inserted, insufflation begun under direct vision. Other ports I placed in the midepigastric and right upper quadrant. Gallbladder chronically inflamed and distended. Fundus retracted in cephalad direction. Next, the gallbladder retracted laterally. With blunt and sharp dissection, we isolated the cystic artery, triple clipped and divided. Cystic duct was also isolated. It was triple clipped and divided. The gallbladder detached from the liver with cautery and taken out through umbilical incisions, operative field irrigated. Hemostasis achieved. All ports removed under direct vision. Fascia closure with 0-Vicryl and skin was closed with subcuticular stitch. The patient was extubated and transported to the recovery room. BLOOD LOSS: 5 mL. Sam Knowles MD DNL/MODL /[id number]
[2019-10-23] MEDS ORDERED: ONDANSETRON HCL INJ 2MG/ML 2ML 2 MG/ML VIAL ONE (17:35)
[2019-10-23] MEDS ORDERED: PROPOFOL IV EMULSION 10 MG/ML 20 ML VIAL ONE (17:35)
[2019-10-23] MEDS ORDERED: SEVOFLURANE INHAL SOLN 250 ML PEN BTL ONE (17:35)
[2019-10-23] MEDS ORDERED: ROCURONIUM BROMIDE 10 MG/ML 5ML VIAL IV ONE (17:35)
[2019-10-23] MEDS ORDERED: NEOSTIGMINE 1 MG/ML 10ML VIAL ONE (17:35)
[2019-10-23] MEDS ORDERED: GLYCOPYRROLATE INJ 0.2 MG/ML VIAL ONE (17:35)
[2019-10-23] MEDS ORDERED: LIDOCAINE HCL 2% LOCAL INJ 5 ML SDV VIAL INJ ONE (17:35)
[2019-10-23] MEDS ORDERED: DEXAMETHASONE SOD PHOS INJ 4 MG/ML VIAL ONE (17:35)
--- NOTE | 2019-10-23 19:25 | NUR ---
Patient received sitting up in bed. AAO x 3. Patient had no complaints of pain. Respirations even and non-labored. IVF infusing at 200 cc/hr. Safety measures in place. Patient instructed to call for assistance when needed. Call light within reach.
[2019-10-24 00:36] VITALS: BP 102/68
[2019-10-24] MEDS: HYDROMORPHONE 1MG/1ML INJ IV PRN (00:50)
[2019-10-24 04:00] VITALS: BP 103/63
[2019-10-24] MEDS: SODIUM CHLORIDE 0.9% 1000ML 1,000 ML IV SCH (04:49)
[2019-10-24] MEDS: LEVETIRACETAM 500MG/5ML VIAL 1,000 MG in SODIUM CHLORIDE 0.9% 100 ML 100 ML IV SCH (05:31)
[2019-10-24] MEDS: PIPER-TAZ 3.375 GM / NS 50ML IV SCH (06:30)
--- NOTE | 2019-10-24 07:00 | NUR ---
Patient resting comfortably. Bed-side report given to oncoming nurse.
[2019-10-24 07:37] VITALS: BP 104/63
[2019-10-24] MEDS: BELLADONNA ALK/PHENOBARBITAL 5 ML UDC PO SCH (07:57)
[2019-10-24] MEDS: FAMOTIDINE 20 MG/2 ML VIAL IV SCH (07:57)
[2019-10-24 08:32] VITALS: BP 104/63
[2019-10-24] MEDS ORDERED: TYLENOL WITH C1 EACH PO (09:22)
[2019-10-24] MEDS ORDERED: FLAGYL250 MG PO (09:24)
[2019-10-24] MEDS ORDERED: ZOFRAN8 MG SL (09:24)
[2019-10-24] MEDS ORDERED: KEFLEX500 MG PO (09:25)
[2019-10-24] MEDS: ONDANSETRON HCL INJ 2MG/ML 2ML 2 MG/ML VIAL IV PRN (09:52)
--- NOTE | 2019-10-24 10:10 | NUR ---
Pt. preparing for d/c and expressed no spiritual or emotional concerns at this time. Pt identified as Rastafarian. Provided hospitality and information on how to reach network manager, if needed. [facility] [employer] Spiritual [facility] Department O: [phone]
--- NOTE | 2019-10-24 10:35 | NUR ---
PATIENT DISCHARGED HOME VIA PRIVATE CAR. VSS AT TIME OF DISCHARGE. DRESSINGS TO TROCHAR SITES TO ABDOMEN C/D/I/ ABDOMEN SOFT TO PALPATION. PATIENT TOLERATING REGULAR DIET. VOIDING WITHOUT DIFFICULTY. IV TO RIGHT AC DC'D WITH CATHETER INTACT. DRESSING APPLIED. HOME RX AND INSTRUCTIONS GIVEN. PT STATES UNDERSTANDING. SEE CHART FOR DETAILS.
--- NOTE | 2019-10-24 10:45 | Discharge Summary ---
PRIMARY CARE PHYSICIAN: Dr. Dilan Adams. CONSULTANTS: 1. Dr. Thanh Humphries. 2. Dr. Sam Knowles. FINAL DIAGNOSES: 1. Gallstone pancreatitis. 2. Cholelithiasis and cholecystitis. SUMMARY: The patient is a 44-year-old female, came in with fever and abdominal pain. Workup showed that the patient had WBC of 14,000. Amylase and lipase were elevated. On admission, amylase was 3545 and lipase was 14,122. The patient also has elevated liver enzymes. The patient's AST was 1259, ALT 1042. The patient has acute cholecystitis associated with acute gallstone pancreatitis. The patient's lipase now is normalized. The patient underwent laparoscopic cholecystectomy done on October 23, [address] Sam Knowles. Postoperatively, the patient is stable. Today, the patient able to tolerate all her diet. Pain has significantly subsided. Lipase is 65 and amylase is 153. Liver enzyme also trending down, AST 46 and ALT 276. The patient is stable to go home today. Electrolyte is normal. WBC is normal. The patient will follow up with Dr. Sam Knowles next week for postoperative care. She will follow up with Dr. Dilan Adams for family physician followup post hospitalization. The patient will be discharged home with Tylenol No.3 p.r.n. for pain, Zofran p.r.n. for nausea and vomiting, and for antibiotics, we will start the patient on oral medication, Flagyl 500 mg 3 times a day. The patient is otherwise stable, discharged home. Follow up as an outpatient with Dr. Sam Knowles and Dr. Dilan Adams, her primary care physician. The patient will resume her home medication. [place] diet. MD ABENA Edwards/FRANCISCO /[id number]
== END 2019-10-24 10:35 | disposition home or self-care (01) | DRG 417 ==
LOC: ER 18:16 → ERHOLD 21:16 → MED/SURG 22:20
PROVIDERS: ADMIT Internal Medicine; ATTEND Internal Medicine
PROC: 0FT44ZZ Resection of Gallbladder, Percutaneous Endoscopic Approach (ICD-10-PCS; principal; 2019-10-23 10:00)
DX: K80.12 Calculus of gallbladder with acute and chronic cholecystitis without obstruction (principal); K85.10 Biliary acute pancreatitis without necrosis or infection; Z85.841 Personal history of malignant neoplasm of brain; G40.909 Epilepsy, unspecified, not intractable, without status epilepticus; F32.9 Major depressive disorder, single episode, unspecified; Z98.890 Other specified postprocedural states
CPT/HCPCS: 36415; 71045; 74177; 74181; 76705; 80053; 80061; 81001; 82150; 82550; 82553; 82607; 82746; 83690; 84443; 84484; 84702; 85025; 85610; 85730; 87086; 88304; 93005; 99284; J1100; J1170; J2001; J2250; J2270; J2405; J2543; J2710; J3010; J7030; Q9967

== ENCOUNTER 2021-11-09 11:42 | Emergency (ER) | payer BC ==
[~2021-11-09] VITALS: Ht 167.6 cm; Wt 79.4 kg
[~2021-11-09 11:42] MED LIST: DESVENLAFAXINE50 MG PO; FLAGYL250 MG PO; KEFLEX500 MG PO; LEVETIRACETAM500 MG PO; PHENTERMINE H37.5 M1 PO; TYLENOL WITH C1 EACH PO; ZOFRAN8 MG SL
[2021-11-09 12:11] LABS: BASOPHILS % 0.6 % (0.0-1.0); EOSINOPHILS # (AUTO) 0.1 (0.0-0.4); EOSINOPHILS % 1.7 % (0.0-6.0); HEMOGLOBIN 14.6 g/dL (12.0-16.0); LYMPHOCYTES # (AUTO) 1.7 (1.0-3.2); LYMPHOCYTES % 23.4 % (18.0-39.1); MEAN CORPUSCULAR HEMOGLOBIN 31.2 pg (28-32); MEAN CORPUSCULAR HGB CONC 34.8 g/dL (31-35); MEAN CORPUSCULAR VOLUME 89.7 fL (81-99); MONOCYTES # (AUTO) 0.5 (0.2-0.8); MONOCYTES % 6.6 % (4.4-11.3); NEUTROPHILS # (AUTO) 4.9 (2.1-6.9); NEUTROPHILS % 67.3 % (38.7-80.0); PLATELET COUNT 344 x10e3/uL (140-360); RED BLOOD COUNT 4.68 x10e6/uL (3.6-5.1); RED CELL DISTRIBUTION WIDTH 13.1 % (11.7-14.4)
[2021-11-09 12:19] LABS: INR 0.95; PARTIAL THROMBOPLASTIN TIME 26.4 seconds (23.8-35.5); PROTHROMBIN TIME 13.6 seconds (11.9-14.5)
[2021-11-09 12:29] LABS: ALANINE AMINOTRANSFERASE 29 IU/L (0-55); ALBUMIN 3.7 g/dL (3.5-5.0); ALBUMIN/GLOBULIN RATIO 0.9 (0.8-2.0); ALKALINE PHOSPHATASE 58 IU/L (40-150); ANION GAP 14.1 mmol/L (8-16); BLOOD UREA NITROGEN 16 mg/dL (7-26); BUN/CREATININE RATIO 19 (6-25); CARBON DIOXIDE 22 mmol/L (22-29); CHLORIDE 107 mmol/L (98-107); CREATINE KINASE 79 IU/L (29-168); CREATININE, SERUM 0.84 mg/dL (0.57-1.11); EST GLOMERULAR FILTRATION RATE 72 ML/MIN (60-); GLUCOSE 109 mg/dL (74-118); POTASSIUM 4.1 mmol/L (3.5-5.1); SODIUM 139 mmol/L (136-145)
[2021-11-09] MEDS ORDERED: LEVETIRACETAM 500MG/5ML VIAL 500 MG in SODIUM CHLORIDE 0.9% 100 ML IV SCH (13:30)
[2021-11-09] MEDS ORDERED: DEXAMETHASONE SOD PHOS 10 MG/1 ML VIAL IV ONE (13:30)
== END 2021-11-09 17:12 | disposition other institution (70) ==
LOC: ER 12:10
DX: R22.0 Localized swelling, mass and lump, head (principal); R53.1 Weakness; G40.909 Epilepsy, unspecified, not intractable, without status epilepticus; F32.A Depression, unspecified; Z20.822 Contact with and (suspected) exposure to COVID-19; Z85.841 Personal history of malignant neoplasm of brain
CPT/HCPCS: 36415; 70450; 71045; 72125; 80053; 82550; 82553; 83735; 84484; 85025; 85610; 85730; 93005; 99284; J1100; J1953; J7050; U0002

== ENCOUNTER → 2022-02-12 | Outpatient (CLI) | payer BC | LOC: MAMMO 11:51 | PROVIDERS: ATTEND Family Medicine | DX: Z12.31 Encounter for screening mammogram for malignant neoplasm of breast (principal) | CPT/HCPCS: 77067 ==